=== PATIENT | male | born 1975 | race Caucasian/White ===

== ENCOUNTER 2020-11-19 11:18 | Observation (INO) | payer MEDICAID, SELFPAY ==
--- NOTE | ~2020-11-19 | XR_ITS ---
EXAMINATION: LEFT FOOT, LEFT ANKLE AND LEFT TIBIA AND FIBULA. CLINICAL INFORMATION: Atraumatic left lower leg. COMPARISON: None TECHNIQUE: Left foot 3 views. Left ankle 2 views. Left tibia and fibula 2 views.. FINDINGS: LEFT FOOT: There is no visible acute fracture, dislocation is subluxation. No bony abnormality. The soft tissues are normal. LEFT ANKLE: The ankle mortise and subtalar joints are normal. The soft tissues are normal. No visible acute fracture or dislocation seen. LEFT TIBIA AND FIBULA: There is no visible fracture or bony abnormality. No periosteal thickening. The soft tissues are normal. XR/XR tibia fibula LT 2V IMPRESSION: Unremarkable left foot, left ankle and left tibia and fibula.
--- NOTE | ~2020-11-19 | XR_ITS ---
EXAMINATION: LEFT FOOT, LEFT ANKLE AND LEFT TIBIA AND FIBULA. CLINICAL INFORMATION: Atraumatic left lower leg. COMPARISON: None TECHNIQUE: Left foot 3 views. Left ankle 2 views. Left tibia and fibula 2 views.. FINDINGS: LEFT FOOT: There is no visible acute fracture, dislocation is subluxation. No bony abnormality. The soft tissues are normal. LEFT ANKLE: The ankle mortise and subtalar joints are normal. The soft tissues are normal. No visible acute fracture or dislocation seen. LEFT TIBIA AND FIBULA: There is no visible fracture or bony abnormality. No periosteal thickening. The soft tissues are normal. XR/XR ankle LT min 3V IMPRESSION: Unremarkable left foot, left ankle and left tibia and fibula.
--- NOTE | ~2020-11-19 | US_ITS ---
EXAMINATION: US VENOUS ULTRASOUND WITH DOPPLER LOWER EXTREMITY, LEFT CLINICAL INFORMATION: Left leg swelling and pain. COMPARISON: None TECHNIQUE: Ultrasound of the deep veins is performed from the hip to the calf with compression sonography and color and pulse Doppler assessment. Spectral analysis with color-flow imaging is performed. FINDINGS: There is absent compression and respiratory variation and augmented flow in the mid and distal common femoral vein, superficial femoral vein, profunda femoral vein, popliteal vein, and the posterior tibial vein. Findings are consistent with acute DVT. The peroneal veins are not seen. There is no significant popliteal fossa cyst. If the patient's symptoms persist, followup ultrasound in 5 days 7 days might be of value to exclude proximal propagation from a non-visualized calf vein. US/US venous duplex LE IMPRESSION: Acute DVT common femoral to posterior tibial vein left leg. Very proximal common femoral vein appears patent.
--- NOTE | ~2020-11-19 | CT_ITS ---
EXAMINATION: CT ANGIOGRAM OF THE CHEST WITH AND WITHOUT CONTRAST (CT PULMONARY ANGIOGRAM FOR PE) CLINICAL INFORMATION: Reason for Exam pt c dvt to left leg c sob/chest pain ? pe COMPARISON: Leg ultrasound of November 19, 2020 TECHNIQUE: Prior to contrast administration, noncontrast localization images were obtained. Subsequently, multidetector volumetric imaging was performed from the thoracic inlet to below the diaphragms following the administration of 85 mL Omnipaque 350 intravenous contrast. No contrast reaction reported Sagittal, coronal, and MIP oblique sagittal reformatted images were obtained on the CT workstation, uploaded to PACS, and reviewed. This CT examination was performed using dose optimization techniques as appropriate, variously including the following: *Automated exposure control *Adjustment of mA and/or kV according to patient size (this includes techniques or standardized protocols for targeted exams where dose is matched to indication/reason for exam; i.e. extremities or head) *Use of iterative reconstruction technique Total exam dose-length product 495 mGy-cm FINDINGS: QUALITY OF STUDY/CONTRAST BOLUS: Satisfactory. PULMONARY ARTERIES: There is a large clot burden from pulmonary artery emboli from second order branching to the right middle lobe, right lower lobe, lingula, and left lower lobe. THORACIC AORTA: No aneurysm or dissection. LUNG: There are peripheral regions of parenchymal disease seen within the right middle lobe, right lower lobe, lingula, and left lower lobe which may represent pulmonary infarcts. Septal blebs are seen bilaterally within the upper lobes without evidence of centrilobular emphysema. Central airways are patent. PLEURA: No pleural effusion or pneumothorax. MEDIASTINUM: Normal heart size. No pericardial effusion. No hilar or mediastinal lymphadenopathy. No evidence of septal bowing or right heart strain. CHEST WALL/AXILLA: No axillary or internal mammary lymphadenopathy. OSSEOUS STRUCTURES: No acute or suspicious osseous abnormality. UPPER ABDOMEN: Unremarkable. No reflux of contrast into the hepatic veins to suggest elevated right heart pressures. CT/CT angio chest PE protocol IMPRESSION: Bilateral acute pulmonary artery emboli within the lingula, right middle lobe, right lower lobe, and left lower lobe. No evidence of heart strain. Bilateral regions of parenchymal disease consistent with pulmonary infarct. VTE: positive This critical result was discussed with Katheryn Quijano at 4:48 PM on November 19, 2020 and it was ascertained that the content and urgency of the report was understood at the time of direct communication.
--- NOTE | ~2020-11-19 | XR_ITS ---
EXAMINATION: LEFT FOOT, LEFT ANKLE AND LEFT TIBIA AND FIBULA. CLINICAL INFORMATION: Atraumatic left lower leg. COMPARISON: None TECHNIQUE: Left foot 3 views. Left ankle 2 views. Left tibia and fibula 2 views.. FINDINGS: LEFT FOOT: There is no visible acute fracture, dislocation is subluxation. No bony abnormality. The soft tissues are normal. LEFT ANKLE: The ankle mortise and subtalar joints are normal. The soft tissues are normal. No visible acute fracture or dislocation seen. LEFT TIBIA AND FIBULA: There is no visible fracture or bony abnormality. No periosteal thickening. The soft tissues are normal. XR/XR foot LT min 3V IMPRESSION: Unremarkable left foot, left ankle and left tibia and fibula.
[2020-11-19 12:41] VITALS: BP 153/110; PULSE 95; RESP 18; TEMP 37.1; O2SAT 98; BMI 27.1
[2020-11-19 14:27] VITALS: BP 150/81; PULSE 88; RESP 16; TEMP 37.1; O2SAT 97
--- NOTE | 2020-11-19 14:30 | ECG_ITS ---
Test Reason : CHEST PAIN Blood Pressure : / mmHG Vent. Rate : 085 BPM Atrial Rate : 085 BPM P-R Int : 156 ms QRS Dur : 084 ms QT Int : 380 ms P-R-T Axes : 029 064 048 degrees QTc Int : 452 ms Normal sinus rhythm Normal ECG No previous ECGs available Referred By: Katheryn Quijano Electronically Signed By:KRAIG LUJAN
--- NOTE | 2020-11-19 14:44 | PHA.MEDREC ---
Pharmacy Consult ? Medication Reconciliation Pharmacy has completed the medication reconciliation.
[2020-11-19 14:54] LABS: MANUAL DIFF FLAG NO
[2020-11-19] MEDS: 0.9 % Sodium Chloride 1,000 ML 999 ML IVCONT (14:56)
[2020-11-19 14:58] LABS: Basophils Absolute Auto 0.1 X10*3/uL (0.0-0.2); Basophils Percent Auto 0.5 % (0-2); Eosinophils Absolute Auto 0.3 X10*3/uL (0.0-0.4); Eosinophils Percent Auto 2.6 % (0-4); Hematocrit 42.3 % (42-52); Hemoglobin 13.7 g/dl (14.0-18.0); Imm Gran Abs Auto 0.07 X10*3/uL (0.00-0.03); Imm Gran Pct Auto 0.5 % (0.0-0.4); Lymphocytes Absolute Auto 2.6 X10*3/uL (1.2-4.9); Lymphocytes Percent Auto 19.8 % (20-40); Mean Corpuscular HGB Conc 32.4 g/dl (31.0-36.0); Mean Corpuscular Hemoglobin 26.6 pg (27.0-33.0); Monocytes Absolute Auto 0.8 X10*3/uL (0.1-1.2); Monocytes Percent Auto 6.4 % (2-11); Neutrophils Absolute Auto 9.1 X10*3/uL (2.0-8.3); Neutrophils Percent Auto 70.2 % (45-73); Platelet Count 360 X10*3/uL (160-400); Red Blood Count 5.16 X10*6/uL (4.60-5.80); Red Cell Distribution Width 14.4 % (11.0-16.0); White Blood Count 12.9 X10*3/uL (4.8-10.8)
--- NOTE | 2020-11-19 14:59 | ED.EXTPRO ---
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 Reports that he does not inject in his lower extremities only and his upper extremity hands. Reports that a few days before he developed this left leg pain/swelling he was having a right lower chest pain although it had resolved over a day and he ignored it and has not returned since then. He denies any fevers, chills, dizziness, headaches, active chest pain at this time, shortness of breath, dyspnea exertion, orthopnea, palpitations or any other symptoms complaints or concerns at this time. Denies recent travel or sick contacts. Denies a history of DVT or PE in the past. Denies recent surgery or hypercoagulation disorder or immobilization. MD Complaint: extremity pain and extremity swelling Onset (ago): day(s) (Five days worse today) Pain Consistency: constant Location: left and lower extremity Quality: aching and constant Radiation: proximal and distal Relieving factors: nothing Exacerbating factors: walking and palpation Context: other (IV drug use) Related Data Home Medications Medication Instructions Recorded Confirmed No Known Home Meds 11/19/20 11/19/20 Allergies Allergy/AdvReac Type Severity Reaction Status Date / Time No Known Allergies Allergy Verified 11/19/20 12:49 Review of Systems Review of Systems: Constitutional : No Weight loss, No Fever, No Chills, No Night Sweats, No Fatigue, No Malaise ENT/Mouth : No Hearing loss, No Ear Pain, No Nasal Congestion, No Sinus Pain, No Hoarseness, No sore throat, No Rhinorrhea, No Swallowing Difficulty Eyes: No Eye Pain, No Swelling, No Redness, No Foreign Body, No Discharge, No Vision Changes Cardiovascular : No Chest Pain, No SOB, No Dyspnea on Exertion, No Orthopnea, No Edema, No Palpitations Respiratory : No Cough, No Sputum, No Wheezing, No Smoke Exposure, No Dyspnea Gastrointestinal : No Nausea, No Vomiting, No Diarrhea, No Constipation, No abdominal Pain, No Hematochezia, No Melena Genitourinary : no irregular bleeding, No Dysuria, No Urinary Frequency, No Hematuria, No Urinary Incontinence, No Urgency, No Flank Pain, No Urinary Flow Changes, No Hesitancy Musculoskeletal : Positive left leg pain/swelling, No Myalgias Skin : No Skin Lesions, No rash Neuro : No Weakness, No Numbness, No Paresthesias, No Loss of Consciousness, No Dizziness, No Headache Psych : No Anxiety/Panic, No Depression, No SI/HI/AH/VH, No Social Issues, Heme/Lymph: No Bruising, No Bleeding,No Lymphadenopathy Endocrine : No Polyuria, No Polydipsia, No Temperature Intolerance Yes all other systems are reviewed and are negative [facility] Past Medical History Attestation statement: The following information was validated with the patient. Medical History No known health problems Social History Social History Advance Directives: Yes Advance Directives Information Provided: Yes Advance Directives on File: No Physical Exam Vital Signs: Vital Signs: Last Vital Signs Temp 98.6 F 11/19/20 17:49 Pulse 79 11/19/20 17:49 Resp 15 11/19/20 17:49 BP 152/95 H 11/19/20 17:49 Pulse Ox 99 11/19/20 17:49 Body Mass Index 27.1 vital signs have been reviewed as normal and appeared to be correct. Blood pressure hypertensive 153/110 Heart rate normal. Respiration rate normal. Temperature normal. Oxygen saturation normal. Appearance: Alert. Oriented X3. No acute distress. Head: Normal external exam. Normocephalic. Atraumatic. Eyes: PERRLA. EOMI. Conjunctiva and sclera normal. Eyelids normal. ENT: Pharynx normal. Uvula midline. Moist mucous membranes. Neck: Normal inspection. Neck supple. FROM. No adenopathy. Thyroid Normal. No meningeal signs. No neck mass noted. CVS: Normal heart rate and rhythm. Heart sound normal. Pulses normal throughout. No murmurs/rales/gallops. Respiratory: No respiratory distress. Painless inspiration. Breath sounds normal. No wheezes/rales/rhonchi noted. Chest nontender. No accessory muscle usage noted or decreased air movement noted. Abdomen: Soft and nontender. Bowel sounds normal in all 4 quadrants. No distention noted. No organomegaly noted. No visible injury noted. Back: No CVA tenderness. Full range of motion noted. No rashes/lesion/induration/fluctuance or signs of infection noted. Skin: Track parekh noted to bilateral hands/forearms although no active infection noted. Otherwise the rest of the Skin warm and dry. Normal skin color. Normal skin turgor. No rashes/lesions/lacerations noted. Extremities: To left lower extremity patient has tenderness all patient at the left calf with soft tissue swelling and erythema noted. No right lower extremity edema or calf tenderness noted. Otherwise all other Extremities exhibit normal range of motion and nontender. Neuro: Oriented X 3. No motor deficit. No sensory deficit. Reflexes normal. Normal steady gait. No focal neuro deficits noted. Vascular: + radial pulses/+ 2 distal pedal pulses/+2 dorsalis pedis b/l. Normal cap refill. No cyanosis noted to upper extremity nails and lower extremity toes nails. 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 Reports that he does not inject in his lower extremities only and his upper extremity hands. Reports that a few days before he developed this left leg pain/swelling he was having a right lower chest pain although it had resolved over a day and he ignored it and has not returned since then. Plan: Venous duplex ultrasound of left lower extremity, x-ray of tibia/fibula/ankle/foot of left lower extremity then re-evaluate. Reevaluation(s) Reevaluation #1: - x-ray of left foot/ankle/tibia/fibula negative for any acute processes. - venous duplex ultrasound of left lower extremity revealed acute DVT of common femoral to posterior tibial vein left leg.?Very proximal common femoral vein appears patent. - therefore will obtain labs including PT INR, obtain EKG, CTA of chest due to patient reports he had chest pain that resolved a few days prior to developing the left leg pain - I attempted to verify the patient's methadone dose although the methadone clinic is closed at this time patient reports he takes 110 mg daily. He did not take his methadone today. Although when I called the methadone Clinic they are close. Pharmacy is attempting to verify the patient's dose - will start the patient on Lovenox plan will be to admit for new acute DVT. Patient understands agrees with this plan. Time: 14:30 Reevaluation #2: - [place] [id number]. Magnesium 3.9. Otherwise all other labs are within normal limits. COVID swab negative. - EKG is normal sinus rhythm with her trip rate of 85 with a normal TN interval normal QRS duration normal QT/QTC interval. No acute ischemic change are noted. No prior EKGs in our system to compare to at this time. - CTA of chest for PE revealed bilateral acute pulmonary artery emboli within the lingula, right middle lobe, right lower lobe, and left lower lobe. No evidence of heart strain. Bilateral regions of parenchymal disease consistent with pulmonary infarct. - therefore I consulted with to admit at this time for PE/DVTs. He reported that they are behind on admission the patient will have to wait to be admitted by the oncoming hospitalist at 19:00. Time: 17:03 MDM - Extremity (Nontraumatic) Medical Records Attestation: I reviewed the patient's medical records. Lab Data Attestation: I reviewed the patient's lab results. Result diagrams: 11/19/20 14:44 11/19/20 14:44 Labs: Lab Results 11/19/20 11/19/20 11/19/20 Range/Units 14:44 14:44 14:44 WBC 12.9 H (4.8-10.8) X10*3/uL RBC 5.16 (4.60-5.80) X10*6/uL Hgb 13.7 L (14.0-18.0) g/dl Hct 42.3 (42-52) % MCV 82.0 (80-98) fL MCH 26.6 L (27.0-33.0) pg MCHC 32.4 (31.0-36.0) g/dl RDW 14.4 (11.0-16.0) % Plt Count 360 (160-400) X10*3/uL MPV 9.0 L (9.4-12.4) fL Immature Gran % (Auto) 0.5 H (0.0-0.4) % Neut % (Auto) 70.2 (45-73) % Lymph % (Auto) 19.8 L (20-40) % [place] % (Auto) 6.4 (2-11) % Eos % (Auto) 2.6 (0-4) % Baso % (Auto) 0.5 (0-2) % Lymph # (Auto) 2.6 (1.2-4.9) X10*3/uL [place] # (Auto) 0.8 (0.1-1.2) X10*3/uL Eos # (Auto) 0.3 (0.0-0.4) X10*3/uL Baso # (Auto) 0.1 (0.0-0.2) X10*3/uL Abs Immat Gran (auto) 0.07 H (0.00-0.03) X10*3/uL Absolute Neuts (auto) 9.1 H (2.0-8.3) X10*3/uL Absolute Nucleated RBC 0.000 (0.0-0.012) X10*3/uL Nucleated RBC % (auto) 0.0 (0.0-0.2) /100WBC Hold Purple Top SEE NOTE PT 13.8 H (9.9-13.0) SEC INR 1.2 H (0.9-1.1) APTT 34.3 (24.1-38.0) SEC Sodium (135-145) mmol/L Potassium (3.3-5.1) mmol/L Chloride (96-108) mmol/L Carbon Dioxide (22-29) mmol/L Anion Gap (12-20) BUN (9-16) mg/dL Creatinine (0.5-1.4) mg/dL Estim Creat Clear Calc Estimated GFR Random Glucose (60-115) mg/dL Calcium (8.4-10.2) mg/dL Magnesium (1.6-2.6) mg/dL Total Bilirubin (0.0-1.0) mg/dL AST (5-37) U/L ALT (0-40) U/L Alkaline Phosphatase (39-117) U/L Total Protein (6.5-8.0) g/dL Albumin (3.5-5.0) g/dL Urine Color Urine Appearance Urine pH (5.0-8.0) Ur Specific [place] (1.005-1.025) Urine Protein (NEG-TRACE) MG/DL Urine Glucose (UA) (NEG) MG/DL Urine Ketones (NEG) MG/DL Urine Blood (NEG) Urine Nitrite (NEG) Ur Leukocyte Esterase (NEG) Urine Opiates Screen (Not Detect) Urine Fentanyl Screen (Not Detect) Ur Barbiturates Screen (Not Detect) Ur Phencyclidine Scrn (Not Detect) Ur Amphetamines Screen (Not Detect) U Benzodiazepines Scrn (Not Detect) Urine Cocaine Screen (Not Detect) U Marijuana (THC) Screen (Not Detect) COVID-19 (PIPER) (Negative) COVID-19 Clin Com 11/19/20 11/19/20 11/19/20 Range/Units 14:44 14:45 17:14 WBC (4.8-10.8) X10*3/uL RBC (4.60-5.80) X10*6/uL Hgb (14.0-18.0) g/dl Hct (42-52) % MCV (80-98) fL MCH (27.0-33.0) pg MCHC (31.0-36.0) g/dl RDW (11.0-16.0) % Plt Count (160-400) X10*3/uL MPV (9.4-12.4) fL Immature Gran % (Auto) (0.0-0.4) % Neut % (Auto) (45-73) % Lymph % (Auto) (20-40) % [place] % (Auto) (2-11) % Eos % (Auto) (0-4) % Baso % (Auto) (0-2) % Lymph # (Auto) (1.2-4.9) X10*3/uL [place] # (Auto) (0.1-1.2) X10*3/uL Eos # (Auto) (0.0-0.4) X10*3/uL Baso # (Auto) (0.0-0.2) X10*3/uL Abs Immat Gran (auto) (0.00-0.03) X10*3/uL Absolute Neuts (auto) (2.0-8.3) X10*3/uL Absolute Nucleated RBC (0.0-0.012) X10*3/uL Nucleated RBC % (auto) (0.0-0.2) /100WBC Hold Purple Top PT (9.9-13.0) SEC INR (0.9-1.1) APTT (24.1-38.0) SEC Sodium 138 (135-145) mmol/L Potassium 4.7 (3.3-5.1) mmol/L Chloride 102 (96-108) mmol/L Carbon Dioxide 24 (22-29) mmol/L Anion Gap 17 (12-20) BUN 10 (9-16) mg/dL Creatinine 0.85 (0.5-1.4) mg/dL Estim Creat Clear Calc 122.9 Estimated GFR > 60 Random Glucose 108 (60-115) mg/dL Calcium 9.5 (8.4-10.2) mg/dL Magnesium 3.9 H* (1.6-2.6) mg/dL Total Bilirubin 0.4 (0.0-1.0) mg/dL AST 11 (5-37) U/L ALT 14 (0-40) U/L Alkaline Phosphatase 85 (39-117) U/L Total Protein 9.0 H (6.5-8.0) g/dL Albumin 4.1 (3.5-5.0) g/dL Urine Color YELLOW Urine Appearance HAZY Urine pH 6.5 (5.0-8.0) Ur Specific [place] <= 1.005 (1.005-1.025) Urine Protein NEG (NEG-TRACE) MG/DL Urine Glucose (UA) NEG (NEG) MG/DL Urine Ketones NEG (NEG) MG/DL Urine Blood NEG (NEG) Urine Nitrite NEG (NEG) Ur Leukocyte Esterase NEG (NEG) Urine Opiates Screen (Not Detect) Urine Fentanyl Screen (Not Detect) Ur Barbiturates Screen (Not Detect) Ur Phencyclidine Scrn (Not Detect) Ur Amphetamines Screen (Not Detect) U Benzodiazepines Scrn (Not Detect) Urine Cocaine Screen (Not Detect) U Marijuana (THC) Screen (Not Detect) COVID-19 (PIPER) Negative (Negative) COVID-19 Clin Com See Note 11/19/20 Range/Units 17:14 WBC (4.8-10.8) X10*3/uL RBC (4.60-5.80) X10*6/uL Hgb (14.0-18.0) g/dl Hct (42-52) % MCV (80-98) fL MCH (27.0-33.0) pg MCHC (31.0-36.0) g/dl RDW (11.0-16.0) % Plt Count (160-400) X10*3/uL MPV (9.4-12.4) fL Immature Gran % (Auto) (0.0-0.4) % Neut % (Auto) (45-73) % Lymph % (Auto) (20-40) % [place] % (Auto) (2-11) % Eos % (Auto) (0-4) % Baso % (Auto) (0-2) % Lymph # (Auto) (1.2-4.9) X10*3/uL [place] # (Auto) (0.1-1.2) X10*3/uL Eos # (Auto) (0.0-0.4) X10*3/uL Baso # (Auto) (0.0-0.2) X10*3/uL Abs Immat Gran (auto) (0.00-0.03) X10*3/uL Absolute Neuts (auto) (2.0-8.3) X10*3/uL Absolute Nucleated RBC (0.0-0.012) X10*3/uL Nucleated RBC % (auto) (0.0-0.2) /100WBC Hold Purple Top PT (9.9-13.0) SEC INR (0.9-1.1) APTT (24.1-38.0) SEC Sodium (135-145) mmol/L Potassium (3.3-5.1) mmol/L Chloride (96-108) mmol/L Carbon Dioxide (22-29) mmol/L Anion Gap (12-20) BUN (9-16) mg/dL Creatinine (0.5-1.4) mg/dL Estim Creat Clear Calc Estimated GFR Random Glucose (60-115) mg/dL Calcium (8.4-10.2) mg/dL Magnesium (1.6-2.6) mg/dL Total Bilirubin (0.0-1.0) mg/dL AST (5-37) U/L ALT (0-40) U/L Alkaline Phosphatase (39-117) U/L Total Protein (6.5-8.0) g/dL Albumin (3.5-5.0) g/dL Urine Color Urine Appearance Urine pH (5.0-8.0) Ur Specific [place] (1.005-1.025) Urine Protein (NEG-TRACE) MG/DL Urine Glucose (UA) (NEG) MG/DL Urine Ketones (NEG) MG/DL Urine Blood (NEG) Urine Nitrite (NEG) Ur Leukocyte Esterase (NEG) Urine Opiates Screen POSITIVE H (Not Detect) Urine Fentanyl Screen POSITIVE H (Not Detect) Ur Barbiturates Screen Not Detected (Not Detect) Ur Phencyclidine Scrn Not Detected (Not Detect) Ur Amphetamines Screen Not Detected (Not Detect) U Benzodiazepines Scrn Not Detected (Not Detect) Urine Cocaine Screen POSITIVE H (Not Detect) U Marijuana (THC) Screen POSITIVE H (Not Detect) COVID-19 (PIPER) (Negative) COVID-19 Clin Com Imaging Data Venous duplex ultrasound of left lower extremity: Attestation: I personally reviewed and interpreted this imaging study as follows: Radiologist's impression: FINDINGS: There is absent compression and respiratory variation and augmented flow in the mid and distal common femoral vein, superficial femoral vein, profunda femoral vein, popliteal vein, and the posterior tibial vein. Findings are consistent with acute DVT. The peroneal veins are not seen.? There is no significant popliteal fossa cyst. If the patient's symptoms persist, followup ultrasound in 5 days 7 days might be of value to exclude proximal propagation from a non-visualized calf vein. US/US venous duplex LE LT IMPRESSION: Acute DVT common femoral to posterior tibial vein left leg. Very proximal common femoral vein appears patent. X-ray of left tibia/fibula/ankle/foot: Attestation: I personally reviewed and interpreted this imaging study as follows: Radiologist's impression: FINDINGS: LEFT FOOT: There is no visible acute fracture, dislocation is subluxation. No bony abnormality. The soft tissues are normal. LEFT ANKLE: The ankle mortise and subtalar joints are normal. The soft tissues are normal. No visible acute fracture or dislocation seen. LEFT TIBIA AND FIBULA: There is no visible fracture or bony abnormality. No periosteal thickening. The soft tissues are normal.? XR/XR tibia fibula LT 2V IMPRESSION: Unremarkable left foot, left ankle and left tibia and fibula.? Critical Care Time Critical Care Time Critical Care Time: Yes Total Critical Care Time: 60 Attestation: I personally attest to this time spent taking care of the patient Discharge Plan Discharge Clinical Impression: Deep vein thrombosis of lower extremity, Pulmonary embolism Patient Disposition: Admitted As Inpatient
[2020-11-19 15:05] LABS: INTERNATIONAL NORM RATIO 1.2 (0.9-1.1); Prothrombin Time 13.8 SEC (9.9-13.0)
[2020-11-19 15:06] LABS: Partial Thromboplastin Time 34.3 SEC (24.1-38.0)
[2020-11-19 15:13] LABS: COVID-19 Test Negative (Negative); IDNOW Serial# 08D9AD1C
[2020-11-19 15:30] LABS: Alanine Aminotransferase 14 U/L (0-40); Albumin Level 4.1 g/dL (3.5-5.0); Alkaline Phosphatase 85 U/L (39-117); Anion Gap 17 (12-20); Aspartate Amino Transferase 11 U/L (5-37); Bilirubin Total 0.4 mg/dL (0.0-1.0); Blood Urea Nitrogen 10 mg/dL (9-16); Calcium 9.5 mg/dL (8.4-10.2); Carbon Dioxide 24 mmol/L (22-29); Chloride 102 mmol/L (96-108); Creatinine Clr Calc Pharmacy 122.9; Estimated Glomerular Filt Rate > 60; Glucose Random 108 mg/dL (60-115); Magnesium 3.9 mg/dL (1.6-2.6); Potassium 4.7 mmol/L (3.3-5.1); Sodium 138 mmol/L (135-145)
[2020-11-19] MEDS: Enoxaparin Sodium 100 MG/ML SYRINGE 90 MG SUBCUT (15:38)
[2020-11-19] MEDS: iohexoL 350 MG/ML 100 ML INFUS..BTL IV (15:58)
[2020-11-19 17:21] LABS: Glucose Urine UA NEG (NEG); Leukocyte Esterase Urine NEG (NEG); Nitrite Urine NEG (NEG); PH 6.5 (5.0-8.0); Specific Gravity - Urine <= 1.005 (1.005-1.025); Urine Blood NEG (NEG); Urine Ketones NEG (NEG); Urine Protein NEG (NEG-TRACE)
[2020-11-19 17:22] LABS: Appearance Urine HAZY; Color Urine YELLOW
[2020-11-19 17:46] LABS: Amphetamine Screen Urine Not Detected (Not Detect); Barbiturates, Urine Not Detected (Not Detect); Benzodiazepines Screen Urine Not Detected (Not Detect); Cannabinoid Screen Urine POSITIVE (Not Detect); Cocaine Screen Urine POSITIVE (Not Detect); Fentanyl, urine POSITIVE (Not Detect); Opiate Screen Urine POSITIVE (Not Detect); Phencyclidine Screen Urine Not Detected (Not Detect)
[2020-11-19 17:49] VITALS: BP 152/95; PULSE 79; RESP 15; TEMP 37; O2SAT 99
[2020-11-19 20:26] LABS: B Type Natriuretic Peptide < 10 pg/mL (<100)
--- NOTE | 2020-11-19 22:07 | P.HPHOSP_ITS ---
History of Present Illness Date of Service: 11/19/20 Chief Complaint: leg pain This is a 45-year-old male with no significant past medical history except for history of opioid abuse who presents to the hospital with complaints of any injury or trauma, no swelling, redness, warmth. He has no trouble with walking. Patient denies any shortness of breath or chest pain although reports that before to 10 days he had a mild sharp chest pain that resolved spontaneously and never reoccurred. He denies any cough, no sputum production, denies any fever or chills, no abdominal pain, no headache change in vision. Patient denies any recent travel, no sedentary lifestyle although reports that he has been home most of the time since the start of the pandemic. Vitals significant for temp of 98.7?, heart rate of 95, respiratory rate of 18, blood pressure of 153/110, satting 98% on room air on my interview blood pre ssure was 150/81 Labs are significant for WBC count of 12.9, hemoglobin of 13.7, PT of 13.8, INR of 1.2, magnesium of 3.9, otherwise unremarkable. UDS positive for opioids fentanyl cocaine and marijuana. Venous duplex of the left lower extremity shows acute DVT common femoral to posterior tibial within of the left leg, very proximal common femoral vein appears patent CT angiogram of the chest showed bilateral acute pulmonary artery emboli within the lingula, right middle lobe, right lower lobe, left lower lobe. No evidence of heart strain. Bilateral regions of parenchymal disease consistent with pulmonary infarct Patient started on Lovenox and will be admitted for further evaluation Review of Systems Review of Systems: Yes all other systems are reviewed and are negative [facility] Medical History (Updated 11/20/20 @ 06:18 by Carmelita Pacheco MD) No known health problems Opioid abuse Social History Patient Tobacco Use Status: Current everyday Tobacco user Tobacco use type: Cigarette Cigarette Packs Per Day: 1.5 Cigarettes Per Day: 30.0 Years Smoked: 30 Patient Interested in Nicotine Replacement: No Patient Given Instructions on How to Stop Smoking: No Advance Directives: Yes Advance Directives Information Provided: Yes Advance Directives on File: No Advance Directives Date on File: 11/20/20 Meds Allergies Allergy/AdvReac Type Severity Reaction Status Date / Time No Known Allergies Allergy Verified 11/19/20 12:49 Active Medications: Current Medications Generic Name Dose Route Start Last Admin Trade Name Freq PRN Reason Stop Dose Admin Acetaminophen 650 mg 11/19/20 19:12 Acetaminophen 325 Mg Tablet PO Q6H PRN Pain, Mild (Pain Scale 1-3) Enoxaparin Sodium 90 mg 11/19/20 15:15 11/19/20 15:38 Enoxaparin Sodium 100 Mg/Ml Syringe 1 mg/kg (90 mg) 90 mg SUBCUT Administration Q12H [facility] Ondansetron HCl 4 mg 11/19/20 19:12 Ondansetron Hcl 4 Mg/2 Ml Vial IVPUSH Q8H PRN Nausea and Vomiting Oxycodone HCl 5 mg 11/19/20 19:12 Oxycodone Hcl Immed Release 5 Mg Tablet PO Q6H PRN Pain, Severe (Pain Scale 7-10) Pharmacy Consult 1 each 11/19/20 14:29 Consult Rx Perform Med Rec MISCELLANE ONCE PRN Consult order Sodium Chloride 3 ml 11/20/20 00:00 0.9 % Sodium Chloride Flush 3 [facility] Medications Medication Instructions Recorded Confirmed Last Taken Type No Known Home Meds 11/19/20 11/19/20 Unknown History Physical Exam Vital Signs and Narrative: Vital Signs: Last Vital Signs Temp 98.6 F 11/19/20 17:49 Pulse 79 11/19/20 17:49 Resp 15 11/19/20 17:49 BP 152/95 H 11/19/20 17:49 Pulse Ox 99 11/19/20 17:49 Body Mass Index 27.1 Const: General: cooperative and no acute distress Orientation/consciousness: patient oriented x3 Eyes: General: appearance normal, both eyes and all related structures Pupils: Equal, round and reactive pupils present Resp: Effort & Inspection: normal respiratory effort and able to speak in complete sentences Auscultation: clear to auscultation bilaterally Cardio: Rate: regular rate Rhythm: regular rhythm GI: Palpation (GI): Soft to palpation Auscultation: normal bowel sounds Skin: General skin exam: no rashes or lesions noted Neuro: General: patient oriented x3 Cranial nerves: Yes Equal, round and reactive pupils present Cognition (Neuro): normal cognition Extrem: Other: Left lower extremity tenderness elicited at the callus no swelling, no erythema warmth General: Yes normal to inspection Results Labs CBC and Chem 7: 11/19/20 14:44 11/19/20 14:44 Labs: Laboratory Results - last 24 hr 11/19/20 11/19/20 11/19/20 14:44 14:44 14:44 MCV 82.0 MCH 26.6 L MCHC 32.4 RDW 14.4 Plt Count 360 MPV 9.0 L Immature Gran % (Auto) 0.5 H Neut % (Auto) 70.2 Lymph % (Auto) 19.8 L Coffey % (Auto) 6.4 Eos % (Auto) 2.6 Baso % (Auto) 0.5 Lymph # (Auto) 2.6 Coffey # (Auto) 0.8 Eos # (Auto) 0.3 Baso # (Auto) 0.1 Abs Immat Gran (auto) 0.07 H Absolute Neuts (auto) 9.1 H Absolute Nucleated RBC 0.000 Nucleated RBC % (auto) 0.0 Hold Purple Top SEE NOTE PT 13.8 H INR 1.2 H APTT 34.3 Anion Gap Estim Creat Clear Calc Estimated GFR Random Glucose Calcium Magnesium Total Bilirubin AST ALT Alkaline Phosphatase B-Natriuretic Peptide Total Protein Albumin Urine Color Urine Appearance Urine pH Ur Specific [place] Urine Protein Urine Glucose (UA) Urine Ketones Urine Blood Urine Nitrite Ur Leukocyte Esterase Urine Opiates Screen Urine Fentanyl Screen Ur Barbiturates Screen Ur Phencyclidine Scrn Ur Amphetamines Screen U Benzodiazepines Scrn Urine Cocaine Screen U Marijuana (THC) Screen COVID-19 (PIPER) COVID-19 Clin Com 11/19/20 11/19/20 11/19/20 14:44 14:45 17:14 MCV MCH MCHC RDW Plt Count MPV Immature Gran % (Auto) Neut % (Auto) Lymph % (Auto) Coffey % (Auto) Eos % (Auto) Baso % (Auto) Lymph # (Auto) Coffey # (Auto) Eos # (Auto) Baso # (Auto) Abs Immat Gran (auto) Absolute Neuts (auto) Absolute Nucleated RBC Nucleated RBC % (auto) Hold Purple Top PT INR APTT Anion Gap 17 Estim Creat Clear Calc 122.9 Estimated GFR > 60 Random Glucose 108 Calcium 9.5 Magnesium 3.9 H* Total Bilirubin 0.4 AST 11 ALT 14 Alkaline Phosphatase 85 B-Natriuretic Peptide Total Protein 9.0 H Albumin 4.1 Urine Color YELLOW Urine Appearance HAZY Urine pH 6.5 Ur Specific [place] <= 1.005 Urine Protein NEG Urine Glucose (UA) NEG Urine Ketones NEG Urine Blood NEG Urine Nitrite NEG Ur Leukocyte Esterase NEG Urine Opiates Screen Urine Fentanyl Screen Ur Barbiturates Screen Ur Phencyclidine Scrn Ur Amphetamines Screen U Benzodiazepines Scrn Urine Cocaine Screen U Marijuana (THC) Screen COVID-19 (PIPER) Negative COVID-19 Clin Com See Note 11/19/20 11/19/20 17:14 19:47 MCV MCH MCHC RDW Plt Count MPV Immature Gran % (Auto) Neut % (Auto) Lymph % (Auto) [place]offey % (Auto) Eos % (Auto) Baso % (Auto) Lymph # (Auto) Coffey # (Auto) Eos # (Auto) Baso # (Auto) Abs Immat Gran (auto) Absolute Neuts (auto) Absolute Nucleated RBC Nucleated RBC % (auto) Hold Purple Top PT INR APTT Anion Gap Estim Creat Clear Calc Estimated GFR Random Glucose Calcium Magnesium Total Bilirubin AST ALT Alkaline Phosphatase B-Natriuretic Peptide < 10 Total Protein Albumin Urine Color Urine Appearance Urine pH Ur Specific [place] Urine Protein Urine Glucose (UA) Urine Ketones Urine Blood Urine Nitrite Ur Leukocyte Esterase Urine Opiates Screen POSITIVE H Urine Fentanyl Screen POSITIVE H Ur Barbiturates Screen Not Detected Ur Phencyclidine Scrn Not Detected Ur Amphetamines Screen Not Detected U Benzodiazepines Scrn Not Detected Urine Cocaine Screen POSITIVE H U Marijuana (THC) Screen POSITIVE H COVID-19 (PIPER) COVID-19 Clin Com Imaging Radiologist's Impressions: Impressions Ankle X-Ray 11/19/20 13:05 IMPRESSION: Unremarkable left foot, left ankle and left tibia and fibula. Foot X-Ray 11/19/20 13:05 IMPRESSION: Unremarkable left foot, left ankle and left tibia and fibula. Tibia/Fibula X-Ray 11/19/20 13:05 IMPRESSION: Unremarkable left foot, left ankle and left tibia and fibula. Venous Duplex 11/19/20 13:05 IMPRESSION: Acute DVT common femoral to posterior tibial vein left leg. Very proximal common femoral vein appears patent. Chest CTA 11/19/20 14:31 IMPRESSION: Bilateral acute pulmonary artery emboli within the lingula, right middle lobe, right lower lobe, and left lower lobe. No evidence of heart strain. Bilateral regions of parenchymal disease consistent with pulmonary infarct. VTE: positive This critical result was discussed with Katheryn Quijano at 4:48 PM on November 19, 2020 and it was ascertained that the content and urgency of the report was understood at the time of direct communication. Assessment and Plan (1) Deep vein thrombosis of lower extremity: Status: Acute (2) Pulmonary embolism: Status: Acute This is a 45-year-old male with past medical history of opioid abuse presents to the hospital with complaints of left leg pain found to have extensive DVT as wel l as bilateral PE # bilateral PE - originate from left lower extremity - not hypoxic, no tachycardia or tachypnea - no elevated BNP, no right heart strain - will obtain echo cardio - start on Lovenox therapeutic dose - monitor with possible discharge on p.o. medications in a # deep vein thrombosis of left lower extremity -Possibly provoked by his use of illicit drugs, patient positive for cocaine, fentanyl, and opioid - at this time will start him on anticoagulation - will need follow-up outpatient with Hematology-Oncology for duration of anticoagulation as this appears to be unprovoked DVT # opiate abuse - continue methadone DVT prophylaxis: Lovenox Quality Stroke Does the patient have a stroke diagnosis?: No VTE Prior VTE?: No VTE Risk Level:: Medical - moderate - high VTE Device Contraindication: Treatment Not Indicated VTE Drug Contraindication: N/A - Med Ordered
[2020-11-19 22:54] VITALS: BP 160/102; PULSE 83; RESP 14; TEMP 37.2; O2SAT 99
[2020-11-20] MEDS: 0.9 % Sodium Chloride Flush 3 ML SYRINGE IVFLUSH ×2 (00:06→08:33)
[2020-11-20] MEDS: Enoxaparin Sodium 100 MG/ML SYRINGE 90 MG SUBCUT (03:17)
--- NOTE | 2020-11-20 05:09 | PC.NURSE ---
nurse to nurse report given to Meño BERRY
[2020-11-20 05:27] VITALS: BMI 31.8
[2020-11-20 05:31] VITALS: BP 158/91; PULSE 88; RESP 17; TEMP 36.2; O2SAT 99
[2020-11-20 05:36] VITALS: BMI 31.8
[2020-11-20 06:54] LABS: Imm Gran Abs Auto 0.04 X10*3/uL (0.00-0.03); Imm Gran Pct Auto 0.4 % (0.0-0.4); MANUAL DIFF FLAG SCAN; PLT CLUMP 1; SCAN SMEAR FLAG 1
[2020-11-20 06:55] LABS: Basophils Absolute Auto 0.1 X10*3/uL (0.0-0.2); Basophils Percent Auto 0.7 % (0-2); Eosinophils Absolute Auto 0.5 X10*3/uL (0.0-0.4); Eosinophils Percent Auto 5.4 % (0-4); Hematocrit 40.1 % (42-52); Hemoglobin 13.1 g/dl (14.0-18.0); Lymphocytes Absolute Auto 2.9 X10*3/uL (1.2-4.9); Lymphocytes Percent Auto 32.3 % (20-40); Mean Corpuscular HGB Conc 32.7 g/dl (31.0-36.0); Mean Corpuscular Hemoglobin 26.8 pg (27.0-33.0); Mean Corpuscular Volume 82.2 fL (80-98); Mean Platelet Volume 10.3 fL (9.4-12.4); Monocytes Absolute Auto 0.6 X10*3/uL (0.1-1.2); Monocytes Percent Auto 6.1 % (2-11); Neutrophils Percent Auto 55.1 % (45-73); Platelet Count 206 X10*3/uL (160-400); Red Blood Count 4.88 X10*6/uL (4.60-5.80); Red Cell Distribution Width 14.3 % (11.0-16.0); White Blood Count 9.1 X10*3/uL (4.8-10.8)
[2020-11-20 07:04] LABS: Anion Gap 18 (12-20); Blood Urea Nitrogen 11 mg/dL (9-16); Carbon Dioxide 18 mmol/L (22-29); Chloride 104 mmol/L (96-108); Creatinine Clr Calc Pharmacy 148.2; Estimated Glomerular Filt Rate > 60; Glucose Random 102 mg/dL (60-115); Potassium 4.3 mmol/L (3.3-5.1); Sodium 136 mmol/L (135-145)
[2020-11-20 07:39] LABS: SLIDE REVIEW VERIFIED
[2020-11-20 07:41] VITALS: BP 150/75; PULSE 83; RESP 20; TEMP 36.2; O2SAT 97
--- NOTE | 2020-11-20 09:26 | P.CNHO_ITS ---
Subjective - Subjective Chief complaint: Left leg pain and swelling Patient: new to practice Consult date: 11/20/20 Primary Care Provider: [facility] Medical Summary: Diagnosis: Left leg DVT, pulmonary embolism 10/2020 HPI - Consult Narrative Reason for consult: Left leg DVT and pulmonary embolism Narrative: Kolton Saleh is a 45 year old male who is admitted for extensive DVT and PE. He stated that he developed pain and swelling in his left ankle and leg for a few days and he came to the hospital when he could not bear weight or walk on it anymore. He denied any complaints of chest pain or shortness of breath. He has a chronic IV drug abuser but has never used his leg veins tissue tub drugs. He goes to the methadone clinic. He smokes cigarettes. There is no family history of of thromboembolism and he denies any prior history of blood clots. 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 He denies any lower extremity trauma or surgery. Review of Systems - Constitutional Reports as per HPI, Denies anorexia, Denies body aches, Denies chills, Denies fever(s), Denies lack of energy, Denies malaise, Denies night sweats - Respiratory Denies chest congestion, Reports cough, Denies hemoptysis, Denies pain with cough, Denies dyspnea on exertion - Gastrointestinal Reports no additional gastrointestinal complaints - Musculoskeletal Reports no additional musculoskeletal complaints - Integumentary/Breasts Skin/Breast: Reports no additional skin complaints Oncology Screenings - ECOG Performance Status ECOG Performance Status: 1 [facility] Medical History: Medical History (Last Updated 11/20/20 @ 06:18 by Carmelita Pacheco MD) No known health problems Opioid abuse Social History: Social History (Last Reviewed 11/20/20 @ 06:16 by Carmelita Pacheco MD) Tobacco History: Patient Tobacco Use Status: Current everyday Tobacco Tobacco use type: Cigarette Cigarette Packs Per Day: 1.5 Cigarettes Per Day: 30.0 Years Smoked: 30 Patient Interested in Nicotine Replacement: No Patient Given Instructions on How to Stop Smoking: No Advance Directives: Advance Directives: Yes Advance Directives Information Provided: Yes Advance Directives on File: No Advance Directives Date on File: 11/20/20 Home Medications and Allergies Current Medications: Current Medications Generic Name Dose Route Start Last Admin Trade Name Freq PRN Reason Stop Dose Admin Acetaminophen 650 mg 11/19/20 19:12 Acetaminophen 325 Mg Tablet PO Q6H PRN Pain, Mild (Pain Scale 1-3) Enoxaparin Sodium 90 mg 11/19/20 15:15 11/20/20 03:17 Enoxaparin Sodium 100 Mg/Ml Syringe 1 mg/kg (90 mg) 90 mg SUBCUT Administration Q12H [facility] Ondansetron HCl 4 mg 11/19/20 19:12 Ondansetron Hcl 4 Mg/2 Ml Vial IVPUSH Q8H PRN Nausea and Vomiting Oxycodone HCl 5 mg 11/19/20 19:12 Oxycodone Hcl Immed Release 5 Mg Tablet PO Q6H PRN Pain, Severe (Pain Scale 7-10) Pharmacy Consult 1 each 11/19/20 14:29 Consult Rx Perform Med Rec MISCELLANE ONCE PRN Consult order Sodium Chloride 3 ml 11/20/20 00:00 11/20/20 08:33 0.9 % Sodium Chloride Flush 3 Ml Syringe IVFLUSH 3 ml QSHIFT [facility] Administration Home Medications Medication Instructions Recorded Confirmed Type methadone 10 mg/mL oral 110 mg PO DAILY 11/20/20 11/20/20 History concentrate (Methadone Intensol) Allergies Allergy/AdvReac Type Severity Reaction Status Date / Time No Known Allergies Allergy Verified 11/19/20 12:49 Physical Exam Vital signs: Vital Signs Temp 97.2 F 11/20/20 07:41 Pulse 83 11/20/20 07:41 Resp 20 11/20/20 07:41 BP 150/75 H 11/20/20 07:41 Pulse Ox 97 11/20/20 07:41 Intake & Output 11/19/20 11/20/20 11/20/20 18:59 06:59 18:59 Intake Total 1000 / 1100 100 / 1100 Balance 1000 / 1100 100 / 1100 Intake: Intake, Oral Amount 100 / 100 Intake, IV Amount 1000 / 1000 0.9 % Sodium Chloride 1,000 ml 1000 / 1000 @ 999 mls/hr IVCONT .Q1H1M [facility] Rx#:[id number] Other: Number of Unmeasured Emesis 1 Episodes Last Bowel Movement 11/19/20 Weight 90.718 kg 106.4 kg Weight in Grams [id number] Weight 106.4 kg - Constitutional Present: no acute distress - Routine HEENT Exam Head: Present: normal inspection Eye: Present: EOMI - Routine Neck Exam Present: supple - Routine Respiratory Exam Absent: accessory muscle use, prolonged expiratory phase, respiratory distress - Routine Cardiovascular Exam Cardiovascular: Present: S1, S2 - Routine Extremities Exam Present: calf tenderness, tenderness - Routine Neurological Exam Present: alert, oriented X3 Hem/Onc Consult Result - Labs CBC & Chem 7: 11/20/20 05:54 11/20/20 05:54 Labs: Short CBC 11/19/20 11/20/20 Range/Units 14:44 05:54 WBC 12.9 H 9.1 (4.8-10.8) X10*3/uL Hgb 13.7 L 13.1 L (14.0-18.0) g/dl Hct 42.3 40.1 L (42-52) % Plt Count 360 206 D (160-400) X10*3/uL BMP 11/19/20 11/20/20 14:44 05:54 Sodium 138 136 Potassium 4.7 4.3 Chloride 102 104 Carbon Dioxide 24 18 L BUN 10 11 Creatinine 0.85 0.81 Calcium 9.5 9.0 Liver Function 11/19/20 Range/Units 14:44 Total Bilirubin 0.4 (0.0-1.0) mg/dL AST 11 (5-37) U/L ALT 14 (0-40) U/L Alkaline Phosphatase 85 (39-117) U/L Albumin 4.1 (3.5-5.0) g/dL Urine 11/19/20 Range/Units 17:14 Urine Color YELLOW Urine Appearance HAZY Urine pH 6.5 (5.0-8.0) Ur Specific [place] <= 1.005 (1.005-1.025) Urine Protein NEG (NEG-TRACE) MG/DL Urine Glucose (UA) NEG (NEG) MG/DL Assessment and Plan (1) Deep vein thrombosis of lower extremity Status: Acute 1. This is a 45-year-old male with extensive left lower extremity DVT and pulmonary embolism diagnosed in October 2020. DVT involves common femoral to posterior tibial vein left leg. CT angiogram revealed bilateral acute pulmonary artery emboli within the lingula, right middle lobe, right lower lobe, and left lower lobe. No evidence of heart strain. Bilateral regions of parenchymal disease consistent wit pulmonary infarct. His risk factors are immobility, IV drug abuse, smoking and obesity. Patient was advised about this and to avoid IV drug abuse while on anticoagulation. Patient will need at least 6 months of anticoagulation, duration may be longer if he has ongoing risk factors. Thrombophilia workup is not indicated. He can be continued on Lovenox or switched to a DOAC, if allowed by his insurance carrier. I thank you for this consultation.
--- NOTE | 2020-11-20 10:11 | MHC.CM.PN ---
A[facility] 11/20/20, EMR REVIEWED, CM MET W/PT WHO IS A&OX4, PT LIVES W/PARENT AND 3 CHILDREN, IS INDEPENDENT W/ALL CARE, NO DME AND NO HOME SERVICES. PT REPORTS HE IS ACTIVE W/[facility] AND HAS A COUNSELOR THERE, PT REPORTS HAVING PLENTY OF [place] SUPPORTS AND DENIES NEED FOR CARE TEAM/RECOVERY SUPPORT. PT VERIFIES HE HAS NO PCP, PT GIVEN DIRECTIONS ON HOW TO SIGN UP AND PAMPHLET W/[facility] PROVIDERS. PT DENIES HCP AND MAY WANT TO COMPLETE PRIOR TO D/C. D/C PLAN: HOME SELF-CARE W/[facility] FOR [facility]ONE [facility], PT TO ARRANGE TRANSPORT.
[2020-11-20] MEDS: methADONE HCl 20 MG/2 ML ORAL.CONC 110 MG PO (11:09)
--- NOTE | 2020-11-20 11:09 | P.DS_ITS ---
DS: Providers Provider Date of Service: 11/20/20 Date of admission: 11/19/20 19:11 Primary care physician: None Physician Consults: 11/20/20 08:13 Consult to Hematology / Oncology Routine Consulting Provider: Kayla Dykes Reason for consultation: Unprovoked DVT\PE for establishment of care and duration of treatment. DS: Diagnosis Discharge Diagnosis (1) Deep vein thrombosis of lower extremity: Status: Acute (2) Pulmonary embolism: Status: Acute DS: Medications Discharge Medications Home Medications: Home Medications Medication Instructions Recorded Confirmed methadone 10 mg/mL oral 110 mg PO DAILY 11/20/20 11/20/20 concentrate (Methadone Intensol) Previous Rx's Medication Instructions Recorded apixaban 5 mg tablet (Eliquis) 5 mg PO BID #60 tab 11/20/20 apixaban 5 mg tablet (Eliquis) 10 mg PO BID #14 tab 11/20/20 DS: Summary Hospital Course Hospital Course: Admission note HPI This is a 45-year-old male with no significant past medical history except for history of opioid abuse who presents to the hospital with complaints of any injury or trauma, no swelling, redness, warmth.? He has no trouble with walking.? Patient denies any shortness of breath or chest pain although reports that before to 10 days he had a mild sharp chest pain that resolved spontaneously and never reoccurred.? He denies any cough, no sputum production, denies any fever or chills, no abdominal pain, no headache change in vision.? Patient denies any recent travel, no sedentary lifestyle although reports that he has been home most of the time since the start of the pandemic. Vitals significant for temp of 98.7?, heart rate of 95, respiratory rate of 18, blood pressure of 153/110, satting 98% on room air on my interview blood pressure was 150/81 Labs are significant for WBC count of 12.9, hemoglobin of 13.7, PT of 13.8, INR of 1.2, magnesium of 3.9, otherwise unremarkable.? UDS positive for opioids fentanyl cocaine and marijuana. Venous duplex of the left lower extremity shows acute DVT common femoral to posterior tibial within of the left leg, very proximal common femoral vein appears patent CT angiogram of the chest showed bilateral acute pulmonary artery emboli within the lingula, right middle lobe, right lower lobe, left lower lobe.? No evidence of heart strain.? Bilateral regions of parenchymal disease consistent with pulmonary infarct Hospital course Presented for evaluation of left lower extremity swelling. Ultrasound Doppler showed DVT involves?common femoral to posterior tibial vein left leg.? CT angiogram revealed bilateral acute pulmonary artery emboli within the lingula, right middle lobe, right lower lobe, and left lower lobe. No evidence of heart strain. A patient was on room air with no reported difficulty breathing. His risk factors including immobility, IV drug abuse, smoking and obesity.? Patient to lose weight and exercise more and were advised avoid IV drug abuse and smoking while on anticoagulation.? To be discharged on Eliquis full dose. Evaluated by billing specialist Dr. Dykes who recommended that the patient will need at least 6 months of anticoagulation, duration may be longer if he has ongoing risk factors.? Thrombophilia workup is not indicated. To continue 6 months of Eliquis To follow-up with Dr. Dykes as outpatient Time Spent with Patient Time attestation: Total time spent providing and/or coordinating discharge services: Discharge coordination time: Greater than 30 minutes Quality: Stroke Does the patient have a stroke diagnosis?: No Physical Exam Vital Signs: Vital Signs: Last Vital Signs Temp 97.2 F 11/20/20 07:41 Pulse 83 11/20/20 07:41 Resp 20 11/20/20 07:41 BP 150/75 H 11/20/20 07:41 Pulse Ox 97 11/20/20 07:41 Body Mass Index 31.8 Const: Other: Constitutional : Alert, oriented, not in distress Neck : Normal inspection, Supple Cardiovascular : RRR, S1 S2, no lower extremity edema Respiratory : Good bilateral air entry, no crackles, wheezes or rhonchi Gastrointestinal: soft, lax, Normal bowel sounds, Non tender Skin : Warm, Dry Neurological : Alert & oriented x3, No focal deficit DS: Data Data Completed and Pending Labs on day of discharge: Laboratory Results - last 24 hr 11/19/20 11/19/20 11/19/20 14:44 14:44 14:44 WBC 12.9 H RBC 5.16 Hgb 13.7 L Hct 42.3 MCV 82.0 MCH 26.6 L MCHC 32.4 RDW 14.4 Plt Count 360 MPV 9.0 L Immature Gran % (Auto) 0.5 H Neut % (Auto) 70.2 Lymph % (Auto) 19.8 L [place] % (Auto) 6.4 Eos % (Auto) 2.6 Baso % (Auto) 0.5 Lymph # (Auto) 2.6 [place] # (Auto) 0.8 Eos # (Auto) 0.3 Baso # (Auto) 0.1 Abs Immat Gran (auto) 0.07 H Absolute Neuts (auto) 9.1 H Absolute Nucleated RBC 0.000 Nucleated RBC % (auto) 0.0 Smear Tech's Comments Hold Purple Top SEE NOTE PT 13.8 H INR 1.2 H APTT 34.3 Sodium Potassium Chloride Carbon Dioxide Anion Gap BUN Creatinine Estim Creat Clear Calc Estimated GFR Random Glucose Calcium Magnesium Total Bilirubin AST ALT Alkaline Phosphatase B-Natriuretic Peptide Total Protein Albumin Urine Color Urine Appearance Urine pH Ur Specific [place] Urine Protein Urine Glucose (UA) Urine Ketones Urine Blood Urine Nitrite Ur Leukocyte Esterase Urine Opiates Screen Urine Fentanyl Screen Ur Barbiturates Screen Ur Phencyclidine Scrn Ur Amphetamines Screen U Benzodiazepines Scrn Urine Cocaine Screen U Marijuana (THC) Screen COVID-19 (PIPER) COVID-19 Clin Com 11/19/20 11/19/20 11/19/20 14:44 14:45 17:14 WBC RBC Hgb Hct MCV MCH MCHC RDW Plt Count MPV Immature Gran % (Auto) Neut % (Auto) Lymph % (Auto) [place] % (Auto) Eos % (Auto) Baso % (Auto) Lymph # (Auto) [place] # (Auto) Eos # (Auto) Baso # (Auto) Abs Immat Gran (auto) Absolute Neuts (auto) Absolute Nucleated RBC Nucleated RBC % (auto) Smear Tech's Comments Hold Purple Top PT INR APTT Sodium 138 Potassium 4.7 Chloride 102 Carbon Dioxide 24 Anion Gap 17 BUN 10 Creatinine 0.85 Estim Creat Clear Calc 122.9 Estimated GFR > 60 Random Glucose 108 Calcium 9.5 Magnesium 3.9 H* Total Bilirubin 0.4 AST 11 ALT 14 Alkaline Phosphatase 85 B-Natriuretic Peptide Total Protein 9.0 H Albumin 4.1 Urine Color YELLOW Urine Appearance HAZY Urine pH 6.5 Ur Specific [place] <= 1.005 Urine Protein NEG Urine Glucose (UA) NEG Urine Ketones NEG Urine Blood NEG Urine Nitrite NEG Ur Leukocyte Esterase NEG Urine Opiates Screen Urine Fentanyl Screen Ur Barbiturates Screen Ur Phencyclidine Scrn Ur Amphetamines Screen U Benzodiazepines Scrn Urine Cocaine Screen U Marijuana (THC) Screen COVID-19 (PIPER) Negative COVID-19 Clin Com See Note 11/19/20 11/19/20 11/20/20 17:14 19:47 05:54 WBC 9.1 RBC 4.88 Hgb 13.1 L Hct 40.1 L MCV 82.2 MCH 26.8 L MCHC 32.7 RDW 14.3 Plt Count 206 D MPV 10.3 Immature Gran % (Auto) 0.4 Neut % (Auto) 55.1 Lymph % (Auto) 32.3 [place] % (Auto) 6.1 Eos % (Auto) 5.4 H Baso % (Auto) 0.7 Lymph # (Auto) 2.9 [place] # (Auto) 0.6 Eos # (Auto) 0.5 H Baso # (Auto) 0.1 Abs Immat Gran (auto) 0.04 H Absolute Neuts (auto) 5.0 Absolute Nucleated RBC 0.000 Nucleated RBC % (auto) 0.0 Smear Tech's Comments VERIFIED Hold Purple Top PT INR APTT Sodium Potassium Chloride Carbon Dioxide Anion Gap BUN Creatinine Estim Creat Clear Calc Estimated GFR Random Glucose Calcium Magnesium Total Bilirubin AST ALT Alkaline Phosphatase B-Natriuretic Peptide < 10 Total Protein Albumin Urine Color Urine Appearance Urine pH Ur Specific [place] Urine Protein Urine Glucose (UA) Urine Ketones Urine Blood Urine Nitrite Ur Leukocyte Esterase Urine Opiates Screen POSITIVE H Urine Fentanyl Screen POSITIVE H Ur Barbiturates Screen Not Detected Ur Phencyclidine Scrn Not Detected Ur Amphetamines Screen Not Detected U Benzodiazepines Scrn Not Detected Urine Cocaine Screen POSITIVE H U Marijuana (THC) Screen POSITIVE H COVID-19 (PIPER) COVID-19 Clin Com 11/20/20 05:54 WBC RBC Hgb Hct MCV MCH MCHC RDW Plt Count MPV Immature Gran % (Auto) Neut % (Auto) Lymph % (Auto) [place] % (Auto) Eos % (Auto) Baso % (Auto) Lymph # (Auto) [place] # (Auto) Eos # (Auto) Baso # (Auto) Abs Immat Gran (auto) Absolute Neuts (auto) Absolute Nucleated RBC Nucleated RBC % (auto) Smear Tech's Comments Hold Purple Top PT INR APTT Sodium 136 Potassium 4.3 Chloride 104 Carbon Dioxide 18 L Anion Gap 18 BUN 11 Creatinine 0.81 Estim Creat Clear Calc 148.2 Estimated GFR > 60 Random Glucose 102 Calcium 9.0 Magnesium Total Bilirubin AST ALT Alkaline Phosphatase B-Natriuretic Peptide Total Protein Albumin Urine Color Urine Appearance Urine pH Ur Specific [place] Urine Protein Urine Glucose (UA) Urine Ketones Urine Blood Urine Nitrite Ur Leukocyte Esterase Urine Opiates Screen Urine Fentanyl Screen Ur Barbiturates Screen Ur Phencyclidine Scrn Ur Amphetamines Screen U Benzodiazepines Scrn Urine Cocaine Screen U Marijuana (THC) Screen COVID-19 (PIPER) COVID-19 Clin Com Discharge Plan Discharge Patient Disposition: Home, Self-Care Discharge Diagnosis: Deep vein thrombosis Pulmonary embolism Referrals: Physician,None [Primary Care Provider] - 1 Week Discharge Medications: New Eliquis 5 mg tablet 10 mg PO BID Qty: 14 RF: 0 Eliquis 5 mg tablet 5 mg PO BID Qty: 60 RF: 5 Continued methadone [Methadone Intensol] 10 mg/mL Concentrate 110 mg PO DAILY RF: 0 Discharge Orders: Discharge Order (Routine); Ordered 11/20/20 Ordered By: Deon Macedo Diet: advance to usual diet Activity on Discharge: As tolerated Stand Alone Forms: Patient Portal Discharge page Other Ambulatory Orders: [place] echo transthoracic complete (Routine) Timeframe: 1 Week Facility: [facility] - Location: Cardiology Ordered By: Deon Macedo Care Plan Goals: Read below Health Concerns: Read below Plan of Treatment: You were evaluated in the emergency for left lower extremity swelling and pain. Found to have deep vein thrombosis along with lung clot based on images. You were treated with blood thinners and evaluated by blood specialist. To continue treatment at time of discharge. Assessment: We advise you to quit smoking and drug abuse. Try to be more active and lose some weight. To start Eliquis 10 mg twice daily for the next week then 5 mg twice daily for total of 6 months duration. To follow-up with Dr. Dykes from Hematology for further recommendations and monitoring. Seek medical attention for any black stools, bleeding or increased weakness
--- NOTE | 2020-11-20 11:21 | MHC.CM.PN ---
PT DISCHARGING HOME W/30 DAY FREE SUPPLY CARD FOR ELIQUIS & RESUMP OF METHADONE MAINT PT TO ARRANGE TRANSPORT
== END 2020-11-20 11:50 | disposition home or self-care (01) ==
LOC: HO.ED 17:49 → HO.EDOVER 19:23 → HO.S3 11-20 03:59
PROVIDERS: Physician Assistant Medical; Admitting Provider Internal Medicine; Emergency Provider Emergency Medicine; Visit Provider Student in an Organized Health Care Education/Training Program
DX: I82.412 Acute embolism and thrombosis of left femoral vein (principal); I82.442 Acute embolism and thrombosis of left tibial vein; I82.409 Acute embolism and thrombosis of unspecified deep veins of unspecified lower extremity; I26.99 Other pulmonary embolism without acute cor pulmonale; F11.10 Opioid abuse, uncomplicated; F17.210 Nicotine dependence, cigarettes, uncomplicated; Z20.822 Contact with and (suspected) exposure to COVID-19; Z79.891 Long term (current) use of opiate analgesic; Z79.899 Other long term (current) drug therapy
CPT/HCPCS: 36415; 71275; 73590; 73610; 73630; 80048; 80053; 80307; 81003; 83735; 83880; 85025; 85610; 85730; 87635; 93005; 93971; 96361; 96372; 96374; 99218; 99285; 99291; J1650; Q9967